=== PATIENT | female | born 1975 | race Caucasian/White ===

== ENCOUNTER → 2019-09-18 08:53 | Outpatient (BNVA) | payer BC, SELFPAY | PROVIDERS: Family Provider Family Medicine; PCP Family Medicine; Visit Provider Nurse Practitioner | DX: G89.4 Chronic pain syndrome (principal); M54.5 Low back pain; F17.210 Nicotine dependence, cigarettes, uncomplicated; Z79.891 Long term (current) use of opiate analgesic | CPT/HCPCS: 99214 ==

== ENCOUNTER → 2019-11-21 11:38 | Outpatient (BNVA) | payer BC, SELFPAY | PROVIDERS: Family Provider Family Medicine; PCP Family Medicine; Visit Provider Nurse Practitioner | DX: G89.4 Chronic pain syndrome (principal); M54.9 Dorsalgia, unspecified; F17.210 Nicotine dependence, cigarettes, uncomplicated; Z79.891 Long term (current) use of opiate analgesic; Z71.6 Tobacco abuse counseling | CPT/HCPCS: 99214 ==

== ENCOUNTER → 2020-01-19 09:49 | Outpatient (BNVA) | payer OTHER, SELFPAY | PROVIDERS: Family Provider Family Medicine; PCP Family Medicine; Visit Provider Family Medicine | DX: Z13.6 Encounter for screening for cardiovascular disorders (principal); E55.9 Vitamin D deficiency, unspecified | CPT/HCPCS: 80053; 80061; 82306; 85025 ==

== ENCOUNTER → 2020-01-20 09:14 | Outpatient (BNVA) | payer OTHER, SELFPAY | PROVIDERS: Family Provider Family Medicine; PCP Family Medicine; Visit Provider Family Medicine | DX: Z13.6 Encounter for screening for cardiovascular disorders (principal); E55.9 Vitamin D deficiency, unspecified; L72.3 Sebaceous cyst; R79.9 Abnormal finding of blood chemistry, unspecified | CPT/HCPCS: 82728; 83550 ==

== ENCOUNTER 2020-02-06 15:01 | Outpatient (CLI) | payer OTHER, SELFPAY ==
--- NOTE | 2020-02-06 15:07 | US_ITS ---
WS: [id number] US soft tissue head neck [id number] REASON FOR EXAM: LYMPHADENOPATHY FINDINGS: The ear is a nodular mass with the hilum consistent with an enlarged lymph node On the left side there is also evidence of a lymph node similar in size. Left side measured 0.96 x 0. 32 x 0.96 cm along the left side of the head and neck there is evidence of another enlarged lymph nod e larger than the 1's behind the ear. Measured 1.65 x 0.54 x 1.40 cm. Scattered along the left side o f the neck are multiple smaller lymph nodes. One measured 0.77 x 5.28 x 0.91 cm. US/US soft tissue head neck 68062 IMPRESSION: Lymphadenopathy behind the ears bilaterally and along the left side of the neck with large nodes identified.
== END 2020-02-06 15:02 | disposition home or self-care (01) ==
LOC: RAD 15:05
PROVIDERS: PCP Family Medicine; Visit Provider Family Medicine
DX: R59.1 Generalized enlarged lymph nodes (principal)
CPT/HCPCS: 76536

== ENCOUNTER → 2020-02-19 10:59 | Outpatient (BNVA) | payer OTHER, SELFPAY | PROVIDERS: PCP Family Medicine; Visit Provider Anesthesiology | DX: G89.4 Chronic pain syndrome (principal); M54.41 Lumbago with sciatica, right side; M54.42 Lumbago with sciatica, left side; M54.9 Dorsalgia, unspecified; R59.1 Generalized enlarged lymph nodes; F17.210 Nicotine dependence, cigarettes, uncomplicated; Z79.891 Long term (current) use of opiate analgesic | CPT/HCPCS: 99214 ==

== ENCOUNTER 2020-03-23 08:34 | Day surgery (SDC) | payer BC, SELFPAY ==
[2020-03-22 11:01] VITALS: BMI 32.0
[2020-03-23] VITALS (13 sets, daily range): BP systolic 110–139; BP diastolic 57–89; PULSE 76–97; RESP 11–26; TEMP 36.1–36.6; O2SAT 95–98
[2020-03-23 08:51] LABS: OR HCG Qualitative Urine Negative (Negative)
[2020-03-23] MEDS: sodium chloride 0.9% 1,000 ML 30 ML IV (09:18)
--- NOTE | 2020-03-23 09:23 | ANES.PREANE2 ---
Pre-Anesthetic Assessment Pre-Anesthetic Assessment: Height/Weight: Height 1.57 m Weight 79.379 kg Temp Pulse Resp BP Pulse Ox 97.8 F 87 18 110/84 96 03/23/20 08:55 03/23/20 08:55 03/23/20 08:55 03/23/20 08:55 03/23/20 08:55 Preop Diagnosis: Cervical lymphadenopathy Proposed Procedure: Operation Date: 03/23/20 09:45 Proposed Procedures p Excision Left sided neck mass 73130 R59.1(Left) - Guille Serrano MD Familial anesthetic complications: None Was Beta Lety taken within 24 hours: Yes Last intake: Intake Last Liquid Date 03/22/20 Last Liquid Time 22:30 Last Solid Date 03/22/20 Last Solid Time 22:30 Social: Social History: Tobacco Airway: Cervical ROM: WNL MP: 2 Dentition: Full Musc/skel: Comments: chronic pain Progressive multiple sclerosis - states she hasn't had any exacerbations with previous anesthestics Neuropsych: Comments: progressive mutiple sclerosis Anesthetic Plan: ASA status: 2 Anesthesia: General Risk of > 500 ml blood loss (7ml/kg in children): No Meds/Allergies Current Medications: Current Medications Generic Name Dose Route Start Last Admin Trade Name Freq PRN Reason Stop Dose Admin Sodium Chloride 1,000 mls @ 30 ml s/hr 03/23/20 08:00 03/23/20 09:18 Sodium Chloride 0.9% IV 03/24/20 07:59 30 mls/hr .Q24H LEONORA Administration PFSH Anesthesia PFSH: Medical History Chronic pain disorder Encounter for long-term (current) use of other medications Encounter for long-term opiate analgesic use Major depressive disorder Smoker Surgical History Hx of section Hx of cholecystectomy Hx of tonsillectomy Family History Mother Diabetes Myocardial infarct Social History Smoking and tobacco status: current every day smoker cigarettes Packs smoked per day: 1 Alcohol intake: never History of recent travel: No Data Anesthesia Other Labs: Laboratory Results - last 48 hr 03/23/20 08:44 Urine HCG, Qual Negative Cardiac Studies: No Data to Display
--- NOTE | 2020-03-23 09:35 | W.PM.OPSUD ---
Surgery/Procedure H&P Update DATE OF PROCEDURE: March 23, 2020 DATE H&P PERFORMED: 03/04/20 H&P UPDATE INFORMATION: I have reviewed H&P completed within last 30 days, I have examined patient prior to procedure and No changes to prior documentation PREOP DIAGNOSIS: Cervical lymphadenopathy PRIMARY INDICATION FOR PROCEDURE: The same PLANNED PROCEDURE: Operation Date: 03/23/20 09:45 Proposed Procedures p Excision Left sided neck mass 12567 R59.1(Left) - Guille Serrano MD
[2020-03-23] MEDS: lidocaine 2% INJ 20 mL INJECTION (10:43)
--- NOTE | 2020-03-23 10:46 | PM.OP ---
Operative Report Date of procedure: March 23, 2020 Pre-op Diagnosis: Cervical lymphadenopathy Post-op diagnosis: same Post-op Diagnosis: Deeply seated left-sided cervical lymphadenopathy measures about 2 x 1 cm Procedure Done: Excision of left sided cervical lymphadenopathy Specimens removed/disposition: Lymph node was cut into 3 pieces by me; 1-tissues sent for lymphoma saline fresh 2-tissues sent for cultures and sensitivity 3-tissues sent for permanent pathology Surgeon: Guille Serrano Rn Internal Medicine: printer technician Umesh Circulating nurse Evette Anesthesia: General (wan support specialist Smart) Estimated blood loss (mL): 10 Condition: stable Disposition: same day Brief History: This is a pleasant 44 years old female patient presented with concerning growth on the left side of the neck likely cervical lymphadenopathy.After thorough history physical examination and reviewing the chart and images with my personal interpretation I did director of group counseling program the patient for excision of cervical lymph node. Indications, risks, benefits and alternatives were all discussed with the patient and she did agree to proceed An informed consent per chart Procedure: After identifying the patient holding area, the correct site and side was marked before the procedure by myself, left side of the neck region, patient was then taken to the operative suite, was placed in supine position, patient had LMA placed by the anesthesia provider,Timeout was done verifying the patient's name/date of /planned procedure and destination after the procedure, all were in agreement. SCDs confirmed to be functioning, preoperative antibiotics administered per protocol, and beta maxim protocol was confirmed Prep and drape of the left side of the neck region was done under the usual sterile technique. Local anesthesia 2% lidocaine was infiltrated site of the incision overlying the left neck sided lymphadenopathy, skin incision was done all the way down to the subcutaneous tissues and platysma dissection was then carried on , the mass was dissected, was deeply seated under the left sternocleidomastoid muscle lymph node was about 2 x 1 cm. I did use small size clips were used to control the feeding small vessels to the lymph node and additional 3 oh [id number] Vicryl sutures to ligate a traversing vein. The specimen was passed to the circulating nurse after slicing the lymph node into 3 pieces in the form of: 1-tissues sent for fresh to rule out lymphoma 2-tissues for cultures and sensitivities 3-tissues for histopathology and permanent Hemostasis was achieved using Bovie cautery, followed by irrigation with normal saline, 3-0 Vicryl was used for platysma closure and deep subdermal,followed by 4-0 Monocryl followed by surgical glue and pressure dressing. Count was completed at the end of the procedure Patient was taken to the recovery room in stable condition I was present for the whole entire procedure
[2020-03-23] MEDS: fentaNYL 50 mcg/mL INJ 2mL IVP ×2 (11:06→11:17)
[2020-03-23] MEDS: ondansetron 2 mg/ML SDV 2 mL 4 MG IVP ×2 (11:07→11:19)
--- NOTE | 2020-03-23 11:23 | SUR.PHASEI ---
1054 PATIENT TO PACU FROM OR. TALKATIVE. NO DISTRESS. RR EVEN AND UNLABORED. DRESSING TO LEFT NECK, CDI.
[2020-03-23] MEDS: metoclopramide 5 mg/mL SDV 2 mL 10 MG IVP (11:25)
--- NOTE | 2020-03-23 11:36 | SUR.PHASEI ---
1130 PATIENT TO OPS AT THIS TIME. TOLERATING ICE CHIPS. NAUSEA AND PAIN IMPROVED. DRESSING TO LEFT NECK, CDI. ANESTHESIA AWARE OF LAST DOSE OF PAIN MEDICATION. THIS NURSE REMAINED WITH PATIENT UNTIL 1132.
[2020-03-23] MEDS: TRAMadol 50 mg Tablet PO (11:40)
[2020-04-13 09:22] LABS: Miscellaneous Test See Scanned Lab Rpt
== END 2020-03-23 12:12 | disposition home or self-care (01) ==
PROVIDERS: PCP Family Medicine; Visit Provider Surgery
PROC: (CPT 38510; principal; 2020-03-23 09:45)
DX: R59.1 Generalized enlarged lymph nodes (principal); G89.29 Other chronic pain; Z79.891 Long term (current) use of opiate analgesic; F32.9 Major depressive disorder, single episode, unspecified; F17.210 Nicotine dependence, cigarettes, uncomplicated; Z82.49 Family history of ischemic heart disease and other diseases of the circulatory system; Z83.3 Family history of diabetes mellitus
CPT/HCPCS: 38510; 12345; 81025; 84703; 87070; 87077; 87176; 87186; 87205; 88271; 88275; 88309; J0690; J2405; J2704; J2765; J3010; J7030

== ENCOUNTER → 2020-04-20 13:41 | Outpatient (BNVA) | payer BC, SELFPAY | PROVIDERS: PCP Family Medicine; Visit Provider Anesthesiology | DX: G89.4 Chronic pain syndrome (principal); M54.42 Lumbago with sciatica, left side; M54.41 Lumbago with sciatica, right side; M54.9 Dorsalgia, unspecified; F17.210 Nicotine dependence, cigarettes, uncomplicated; Z79.891 Long term (current) use of opiate analgesic; Z71.6 Tobacco abuse counseling | CPT/HCPCS: 99214 ==

== ENCOUNTER 2020-06-03 10:56 | Outpatient (CLI) | payer BC, SELFPAY ==
--- NOTE | 2020-06-03 11:09 | XR_ITS ---
WS: [id number] SHOULDER LEFT TECHNIQUE: 3 views of the left shoulder CLINICAL INFORMATION: left shoulder pain COMPARISON: FINDINGS: Normal acromioclavicular joint. Normal glenohumeral joint. Acromion is normal in appearance. Normal g lenoid. No evidence of acute fracture dislocation. XR/XR shoulder LT min 2V* [id number] IMPRESSION: Normal left shoulder.
== END 2020-06-03 10:57 | disposition home or self-care (01) ==
LOC: RADWPI 11:00
PROVIDERS: PCP Family Medicine; Visit Provider Surgery
DX: M25.512 Pain in left shoulder (principal)
CPT/HCPCS: 73030

== ENCOUNTER → 2020-06-16 09:39 | Outpatient (BNVA) | payer BC, SELFPAY | PROVIDERS: PCP Family Medicine; Visit Provider Anesthesiology | DX: G89.29 Other chronic pain (principal); M54.9 Dorsalgia, unspecified; F17.210 Nicotine dependence, cigarettes, uncomplicated; Z79.891 Long term (current) use of opiate analgesic; Z71.6 Tobacco abuse counseling | CPT/HCPCS: 99213; 99214 ==

== ENCOUNTER → 2020-06-28 13:46 | Outpatient (BNVA) | payer BC, SELFPAY | PROVIDERS: PCP Family Medicine; Referring Provider Surgery; Visit Provider Orthopaedic Surgery | DX: M25.612 Stiffness of left shoulder, not elsewhere classified (principal) | CPT/HCPCS: 73030 ==

== ENCOUNTER → 2020-08-04 14:17 | Outpatient (BNVA) | payer BC, SELFPAY | PROVIDERS: PCP Family Medicine; Visit Provider Nurse Practitioner Women's Health | DX: Z01.419 Encounter for gynecological examination (general) (routine) without abnormal findings (principal); Z11.3 Encounter for screening for infections with a predominantly sexual mode of transmission; N76.0 Acute vaginitis; B96.89 Other specified bacterial agents as the cause of diseases classified elsewhere | CPT/HCPCS: 87491; 87591; 87661; 88175 ==

== ENCOUNTER → 2020-08-11 14:07 | Outpatient (BNVA) | payer BC, SELFPAY | PROVIDERS: PCP Family Medicine; Visit Provider Anesthesiology | DX: G89.29 Other chronic pain (principal); M53.3 Sacrococcygeal disorders, not elsewhere classified; M54.9 Dorsalgia, unspecified; F17.210 Nicotine dependence, cigarettes, uncomplicated; Z79.891 Long term (current) use of opiate analgesic; Z79.899 Other long term (current) drug therapy; Z71.6 Tobacco abuse counseling | CPT/HCPCS: 99213; 99214 ==

== ENCOUNTER → 2020-08-20 14:49 | Outpatient (BNVA) | payer BC, SELFPAY | PROVIDERS: PCP Family Medicine; Visit Provider Family Medicine | DX: E55.9 Vitamin D deficiency, unspecified (principal); Z13.6 Encounter for screening for cardiovascular disorders | CPT/HCPCS: 80053; 80061; 82306; 85025 ==

== ENCOUNTER 2020-08-31 13:37 | Outpatient (RCR) | payer BC, SELFPAY | END 2020-09-02 23:59 | disposition home or self-care (01) | LOC: SPT 13:37 | PROVIDERS: PCP Family Medicine; Referring Provider Family Medicine; Visit Provider Family Medicine | DX: M25.612 Stiffness of left shoulder, not elsewhere classified (principal) | CPT/HCPCS: 97161 ==

== ENCOUNTER → 2020-10-13 12:30 | Outpatient (BNVA) | payer OTHER, SELFPAY | PROVIDERS: PCP Family Medicine; Visit Provider Anesthesiology | DX: G89.29 Other chronic pain (principal); M54.9 Dorsalgia, unspecified; F17.219 Nicotine dependence, cigarettes, with unspecified nicotine-induced disorders; Z79.899 Other long term (current) drug therapy; Z79.891 Long term (current) use of opiate analgesic | CPT/HCPCS: 99213 ==

== ENCOUNTER 2020-11-01 14:07 | Outpatient (CLI) | payer OTHER, SELFPAY ==
--- NOTE | 2020-11-01 15:00 | MM_ITS ---
WS: [id number] Bilateral screening digital mammogram, 11/18/2020 Clinical Data: Z12.39 - Encounter for other screening for malignant neoplasm of breast Comparison: 08/16/2012 Findings: The breast parenchymal pattern shows fat replacement. No spiculated masses or clustered calcification s are seen. There are no secondary signs of carcinoma. MM/[place] [id number] Impression: 1. Negative bilateral mammogram unchanged. 2. Recommend annual screening mammograms. BIRADS: 1-Negative FOLLOW UP: 1 Year Follow-up The CAD apparel stock checker was used.
== END 2020-11-01 14:08 | disposition home or self-care (01) ==
LOC: RADSHAW 14:09
PROVIDERS: PCP Family Medicine; Visit Provider Nurse Practitioner Women's Health
DX: Z12.31 Encounter for screening mammogram for malignant neoplasm of breast (principal)
CPT/HCPCS: 77067

== ENCOUNTER 2020-11-04 06:00 | Outpatient (RCR) | payer OTHER, SELFPAY | END 2020-12-01 23:59 | disposition home or self-care (01) | LOC: SPT 06:00 | PROVIDERS: PCP Family Medicine; Referring Provider Family Medicine; Visit Provider Family Medicine | DX: M25.612 Stiffness of left shoulder, not elsewhere classified (principal) | CPT/HCPCS: 97110; 97161 ==

== ENCOUNTER → 2020-11-16 13:28 | Outpatient (BNVA) | payer OTHER, SELFPAY | PROVIDERS: PCP Family Medicine; Visit Provider Nurse Practitioner Women's Health | DX: Z30.42 Encounter for surveillance of injectable contraceptive (principal); A59.9 Trichomoniasis, unspecified | CPT/HCPCS: 81025; 87661 ==

== ENCOUNTER 2020-12-02 06:00 | Outpatient (RCR) | payer OTHER, SELFPAY | END 2020-12-31 23:59 | disposition home or self-care (01) | LOC: SPT 06:00 | PROVIDERS: PCP Family Medicine; Referring Provider Family Medicine; Visit Provider Family Medicine | DX: M25.612 Stiffness of left shoulder, not elsewhere classified (principal) | CPT/HCPCS: 97110 ==

== ENCOUNTER → 2020-12-02 14:26 | Outpatient (BNVA) | payer OTHER, SELFPAY | PROVIDERS: PCP Family Medicine; Visit Provider Anesthesiology | DX: G89.29 Other chronic pain (principal); M54.9 Dorsalgia, unspecified; F17.219 Nicotine dependence, cigarettes, with unspecified nicotine-induced disorders; Z79.891 Long term (current) use of opiate analgesic | CPT/HCPCS: 99213 ==

== ENCOUNTER 2021-01-01 06:00 | Outpatient (RCR) | payer OTHER, SELFPAY | END 2021-01-31 23:59 | disposition home or self-care (01) | LOC: SPT 06:00 | PROVIDERS: PCP Family Medicine; Referring Provider Family Medicine; Visit Provider Family Medicine | DX: M25.612 Stiffness of left shoulder, not elsewhere classified (principal) | CPT/HCPCS: 97110; G0283 ==

== ENCOUNTER 2021-01-25 17:58 | Emergency (ER) | payer OTHER, SELFPAY ==
[2021-01-25] VITALS (10 sets, daily range): BP systolic 111–139; BP diastolic 69–92; PULSE 0–99; RESP 15–22; TEMP 36.6; O2SAT 96–100; BMI 34.0
[2021-01-25 19:34] LABS: Add Urine Microscopic? NO; Charge for UA Resulting for Rev
[2021-01-25 19:37] LABS: Bilirubin Urine Neg (Negative); Blood Urine Neg (Negative); Glucose Urine UA Norm (Normal); Ketones Urine Negative (Negative); Leukocyte Esterase Urine Negative (Negative); Nitrate Urine Negative (Negative); Protein Urine Neg (Negative); Specific Gravity, Urine 1.015 (1.005-1.030); Urine Appearance Clear (CLEAR); Urine Color Yellow (Yellow); Urobilinogen Urine Norm (Negative); pH Urine 5 (5-7)
[2021-01-25 19:51] LABS: Basophils # 0.1 10^3/uL (0.0-0.1); Basophils % 0.7 %; Eosinophils # 0.1 10^3/uL (0.0-0.8); Eosinophils % 1.4 %; Hematocrit 37.2 % (37.0-47.0); Hemoglobin 12.3 g/dL (11.5-15.3); Lymphocytes # 2.8 10^3/uL (0.8-4.8); Lymphocytes % 40.2 %; Mean Corpuscular HGB Conc 33.1 g/dL (30.0-36.0); Mean Platelet Volume 8.5 fL (7.4-10.4); Monocytes # 0.5 10^3/uL (0.2-0.9); Monocytes % 7.6 %; Neutrophils # 3.45 10^3/uL (1.8-7.7); Neutrophils % 49.7 %; Nucleated Red Blood Cells % 0 %; Platelet Count 436 10^3/cmm (130-400); Red Blood Count 3.51 10^6/uL (4.1-5.3)
--- NOTE | 2021-01-25 19:58 | W.ED.CHESTPA ---
HPI - Chest Pain General: Chief Complaint: Chest Pain Stated Complaint: heart palpatations, light headed,weak,shaky,READ Time Seen by Provider: 01/25/21 19:11 History of Present Illness: HPI narrative: Patient is a well-appearing 45-year-old female seen for palpitations and chest pain and lightheadedness. She states that she has felt palpitations for many years, roughly 20, but in the last week, they have gotten significantly worse. She describes a pounding in her chest which recently has been accompanied by sharp pains and lightheadedness. She never had this before. She admits to smoking and drinking alcohol occasionally. She has no history of ACS or coronary interventions. She denies cough, fever, abdominal pain, nausea associated with the symptoms. She has no other acute complaints. She states that when she gets the sharp pain, she feels as if she might pass out for several seconds. Review of Systems General: Reports: 10 or more systems reviewed and unremarkable except in HPI and below PFSH ED PFSH: Medical History Anxiety and depression Chronic back pain Chronic pain disorder Encounter for long-term (current) use of other medications Encounter for long-term opiate analgesic use Lymphadenopathy Major depressive disorder Smoker Surgical History History of lymph node excision (~2019) benign Hx of section Hx of cholecystectomy Hx of tonsillectomy Family History Mother Diabetes Father Heart disease Grandmother Heart disease Maternal Stroke Maternal Denies family history of Colon cancer Ovarian cancer Hypercholesteremia Breast cancer Hypertension Uterine cancer Thyroid disease Social History Smoking and tobacco status: current every day smoker cigarettes Packs smoked per day: 1 Alcohol intake: never History of recent travel: No Physical Exam Const: COMMON NORMALS: no acute distress, patient oriented x3 and alert HENMT: COMMON NORMALS: normocephalic and atraumatic HEAD & SCALP: normocephalic and atraumatic Eye: COMMON NORMALS: Equal, round and reactive pupils present, EOMs intact bilaterally and no scleral icterus PUPIL: Yes Equal, round and reactive pupils present Resp: COMMON NORMALS: normal respiratory effort and No retractions Cardio: COMMON NORMALS: regular rate and No murmurs present (Cardio) RATE: regular rate RHYTHM: abnormal rhythm with ectopic beats GI: COMMON NORMALS: Normal to inspection, nondistended, normoactive bowel sounds present, Soft to palpation and non-tender PALPATION: Yes Soft to palpation Neuro: COMMON NORMALS: patient oriented x3 SENSORIUM/ORIENTATION: Yes alert Skin: COMMON NORMALS: no rashes or lesions noted GENERAL SKIN EXAM: no rashes or lesions noted Course Vital Signs: Vital signs: Vital Signs Temperature 97.8 F 01/25/21 18:03 Pulse Rate 61 01/26/21 00:32 Respiratory Rate 16 01/26/21 00:32 Blood Pressure 99/69 01/26/21 00:32 Pulse Oximetry 99 01/26/21 00:32 MDM - Chest Pain MDM Narrative: Medical decision making narrative: Patient remained hemodynamically stable throughout ED course. Initially, she had frequent PVCs which were symptomatic. After receiving 25 mg immediate release metoprolol oral, PVCs remitted completely. Troponin x2 are negative and EKG shows no ST segment elevation or depression. BNP is very mildly elevated. She does express that she sometimes feels orthopnea when she lays flat at night. I spoke with cardiology who agrees it is safe her to be discharged with low-dose metoprolol and follow-up to cardiology. They advised a cardiac event monitor be placed. She will be discharged in stable and improved condition with follow-up to cardiology. Lab Data: Labs: Lab Results 01/25/21 01/25/21 01/25/21 Range/Units 19:23 19:44 19:44 WBC 7.0 (4.0-10.0) 10^3/ uL RBC 3.51 L (4.1-5.3) 10^6/u L Hgb 12.3 (11.5-15.3) g/dL Hct 37.2 (37.0-47.0) % MCV 106.0 H (81-99) fL MCH 35.0 H (28.0-34.0) pg MCHC 33.1 (30.0-36.0) g/dL RDW 14.0 (12.1-15.1) % Plt Count 436 H (130-400) 10^3/c mm MPV 8.5 (7.4-10.4) fL Neut % (Auto) 49.7 % Lymph % (Auto) 40.2 % [place] % (Auto) 7.6 % Eos % (Auto) 1.4 % Baso % (Auto) 0.7 % Neut # (Auto) 3.45 (1.8-7.7) 10^3/u L Lymph # (Auto) 2.8 (0.8-4.8) 10^3/u L [place] # (Auto) 0.5 (0.2-0.9) 10^3/u L Eos # (Auto) 0.1 (0.0-0.8) 10^3/u L Baso # (Auto) 0.1 (0.0-0.1) 10^3/u L Nucleated RBC % (a uto) 0 % Nucleated RBCs # 0.0 /100WBC Sodium 141 (136-145) mmol/L Potassium 4.2 (3.5-5.1) mmol/L Chloride 104 (98-107) mmol/L Carbon Dioxide 24 (22-29) mmol/L Anion Gap 17.2 (5-19) BUN 8 (6-20) mg/dL Creatinine 0.4 L (0.5-0.9) mg/dL GFR Calculation 173.4 H (90-130) mL/min Glucose 97 (65-115) mg/dL Calculated Osmolal ity 290 (285-295) mOsm/k g Calcium 8.9 (8.5-10.5) mg/dL Total Bilirubin 0.2 (0.15-1.2) mg/dL AST 17 (0-32) U/L ALT 25 (0-33) U/L Alkaline Phosphata se 105 (35-105) IU/L Troponin T Baselin e (0-10) ng/L Troponin T 120 Min [place] (0-10) ng/L Delta Troponin T (0-10) ABS# NT-Pro-B Natriuret Pep (0-125) pg/mL Total Protein 6.7 (6.6-8.7) g/dL Albumin 4.5 (3.5-5.2) g/dL Globulin 2.2 (1.3-4.6) g/dL Urine Color Yellow (Yellow) Urine Appearance Clear (CLEAR) Urine pH 5 (5-7) Ur Specific Gravit y 1.015 (1.005-1.030) Urine Protein Neg (Negative) Urine Glucose (UA) Norm (Normal) Urine Ketones Negative (Negative) Urine Blood Neg (Negative) Urine Nitrate Negative (Negative) Urine Bilirubin Neg (Negative) Urine Urobilinogen Norm (Negative) mg/dL Ur Leukocyte Nagelic ase Negative (Negative) 01/25/21 01/25/21 01/25/21 Range/Units 19:44 21:45 21:45 WBC (4.0-10.0) 10^3/ uL RBC (4.1-5.3) 10^6/u L Hgb (11.5-15.3) g/dL Hct (37.0-47.0) % MCV (81-99) fL MCH (28.0-34.0) pg MCHC (30.0-36.0) g/dL RDW (12.1-15.1) % Plt Count (130-400) 10^3/c mm MPV (7.4-10.4) fL Neut % (Auto) % Lymph % (Auto) % [place] % (Auto) % Eos % (Auto) % Baso % (Auto) % Neut # (Auto) (1.8-7.7) 10^3/u L Lymph # (Auto) (0.8-4.8) 10^3/u L [place] # (Auto) (0.2-0.9) 10^3/u L Eos # (Auto) (0.0-0.8) 10^3/u L Baso # (Auto) (0.0-0.1) 10^3/u L Nucleated RBC % (a uto) % Nucleated RBCs # /100WBC Sodium (136-145) mmol/L Potassium (3.5-5.1) mmol/L Chloride (98-107) mmol/L Carbon Dioxide (22-29) mmol/L Anion Gap (5-19) BUN (6-20) mg/dL Creatinine (0.5-0.9) mg/dL GFR Calculation (90-130) mL/min Glucose (65-115) mg/dL Calculated Osmolal ity (285-295) mOsm/k g Calcium (8.5-10.5) mg/dL Total Bilirubin (0.15-1.2) mg/dL AST (0-32) U/L ALT (0-33) U/L Alkaline Phosphata se (35-105) IU/L Troponin T Baselin e 6 (0-10) ng/L Troponin T 120 Min [place] 6.00 (0-10) ng/L Delta Troponin T 0 (0-10) ABS# NT-Pro-B Natriuret Pep 197 H (0-125) pg/mL Total Protein (6.6-8.7) g/dL Albumin (3.5-5.2) g/dL Globulin (1.3-4.6) g/dL Urine Color (Yellow) Urine Appearance (CLEAR) Urine pH (5-7) Ur Specific Gravit y (1.005-1.030) Urine Protein (Negative) Urine Glucose (UA) (Normal) Urine Ketones (Negative) Urine Blood (Negative) Urine Nitrate (Negative) Urine Bilirubin (Negative) Urine Urobilinogen (Negative) mg/dL Ur Leukocyte Angelic ase (Negative) EKG Data^: EKG 1: Interpretation: Time?1812?normal sinus rhythm with frequent PVCs, rate of 84, no ST elevation or depression, intervals within normal limits. Discharge Plan Discharge Patient Disposition: Home Clinical Impression: Symptomatic PVCs, Near syncope Condition: Stable Prescriptions: New metoprolol tartrate 25 mg tablet 12.5 mg PO BID Qty: 30 RF: 0 No Action medroxyprogesterone [Depo-Provera] 150 mg/mL suspension 150 mg IM .every 3 months Qty: 1 RF: 3 famotidine 20 mg tablet 20 mg PO PRN RF: 0 oxycodone-acetaminophen [Percocet] 10-325 mg tablet 1 tab PO QID PRN (Reason: pain) 30 Days Qty: 120 RF: 0 Aspir-81 81 mg Tablet,Delayed Release (Dr/Ec) 81 mg PO QAM RF: 0 Tylenol Arthritis 650 mg Tablet Extended Release 1,300 mg PO PRN RF: 0 modafinil 200 mg tablet 200 mg PO QAM RF: 0 Prilosec 20 mg Capsule,Delayed Release(Dr/Ec) 20 mg PO QAM RF: 0 Vitamin D3 125 mcg (5,000 unit) Tablet 10,000 unit PO DAILY RF: 0 Multivitamins 28 mg iron- 800 mcg Tablet 2 tab PO QAM RF: 0 gabapentin 600 mg tablet 600 mg PO QID RF: 0 Skelaxin 800 mg tablet 800 mg PO QID RF: 0 Discharge Orders: Discharge ED (Routine); Ordered 01/26/21 Ordered By: José Miguel German Referrals: Amy Potter DO [Primary Care Provider] - Discharge Diet: Usual diet and Low Salt Discharge Activity: Resume usual activity Patient Instructions: Near Syncope (ED) Activity Restrictions/Additional Instructions: Your EKG and blood tests were reassuring today. Do not suspect heart attack Your PVCs appeared to occur much less frequently after taking metoprolol. Please take the medication as prescribed to keep PVCs from occurring. Your cardiac event monitor data should be sent to Dr. Nettles and you can follow-up with him to make sure no further interventions are warranted. Coding Level of Care Code ED Telephoto Installer for Eugenia Fwd Exam Detailed
--- NOTE | 2021-01-25 20:01 | PC.PHAR ---
pt states she takes care of her own medications-pt states she hasnt taken her glatiramer injection and topamax since oct 2020 pt states she is trying to get her insurance to cover her injection and states she forgot about taking the topamax-
[2021-01-25 20:10] LABS: Troponin(5th) Baseline 6 ng/L (0-10)
[2021-01-25 20:16] LABS: Alanine Aminotransferase 25 U/L (0-33); Albumin Level 4.5 g/dL (3.5-5.2); Alkaline Phosphatase 105 IU/L (35-105); Anion Gap 17.2 (5-19); Aspartate Amino Transferase 17 U/L (0-32); Blood Urea Nitrogen 8 mg/dL (6-20); Calcium 8.9 mg/dL (8.5-10.5); Carbon Dioxide 24 mmol/L (22-29); Chloride 104 mmol/L (98-107); Globulin 2.2 g/dL (1.3-4.6); Glomerular Filtration Rate 173.4 mL/min (90-130); Glucose 97 mg/dL (65-115); Osmolality Calculated 290 mOsm/kg (285-295); Potassium 4.2 mmol/L (3.5-5.1); Sodium 141 mmol/L (136-145); Total Bilirubin 0.2 mg/dL (0.15-1.2); Total Protein 6.7 g/dL (6.6-8.7)
--- NOTE | 2021-01-25 21:14 | ECG_ITS ---
[facility] Test Date: 2021-01-25 Pat Name: Darlene Yu Department: Room: Gender: Female Bioinformatics Team Member: : 1975 Requested By: José Miguel German Order Number: [id number] Craig MD: Leticia Montgomery M.D. Measurements Intervals [place] Rate: 71 P: 2 TX: 149 QRS: 15 QRSD: 66 T: 9 QT: 378 QTc: 412 Interpretive Statements SINUS RHYTHM LOW QRS VOLTAGE IN PRECORDIAL LEADS [QRS DEFLECTION < 1.0 mV IN CHEST LEADS] ANTEROSEPTAL MYOCARDIAL INFARCTION , OF INDETERMINATE AGE [40+ ms Q WAVE IN V1-V4] No previous ECG available for comparison Electronically Signed On 01-25-2021 23:12:46 CDT by Leticia Montgomery M.D. [email or web address]
--- NOTE | 2021-01-25 21:23 | XRR_ITS ---
PROCEDURE INFORMATION: Exam: XR Chest Exam date and time: 01/25/2021 9:31 PM Age: 45 years old Clinical indication: Pain; Chest pressure; Additional info: Chest pain TECHNIQUE: Imaging protocol: XR of the chest. Views: 1 view. Total images: 1 COMPARISON: No relevant prior studies available. FINDINGS: Lungs: No visible active interstitial or alveolar airspace disease. Pleural spaces: Unremarkable. No pleural effusion. No pneumothorax. Heart/Mediastinum: Unremarkable. No cardiomegaly. Bones/joints: Unremarkable. XR/XR chest 1V portable [id number] IMPRESSION: Nonacute.
[2021-01-25] MEDS: metoprolol tartrate 25 mg Tablet PO (22:07)
[2021-01-25 22:21] LABS: Troponin 5 2HR Delta 0 ABS# (0-10)
[2021-01-25 23:19] LABS: NT Pro B Type Natriuretic Pept 197 pg/mL (0-125)
[2021-01-26 00:32] VITALS: BP 99/69; PULSE 61; RESP 16; O2SAT 99
--- NOTE | 2021-01-26 01:14 | ECG_ITS ---
[facility] Test Date: 2021-01-25 Pat Name: Darlene Yu Department: Room: Gender: Female Archivist Economic History: : 1975 Requested By: José Miguel German Order Number: [id number] Craig MD: Surjit Nettles M.D. Measurements Intervals [place] Rate: 78 P: 12 ND: 148 QRS: 8 QRSD: 65 T: 33 QT: 362 QTc: 415 Interpretive Statements SINUS RHYTHM WITH OCCASIONAL ECTOPIC PREMATURE COMPLEXES LOW QRS VOLTAGE IN PRECORDIAL LEADS [QRS DEFLECTION < 1.0 mV IN CHEST LEADS] ANTEROSEPTAL MYOCARDIAL INFARCTION [40+ ms Q WAVE IN V1-V4], PROBABLY OLD No previous ECG available for comparison Electronically Signed On 01-26-2021 17:42:44 CDT by Surjit Nettles M.D. [id number]
[2021-01-26 01:28] VITALS: BP 95/55; PULSE 68; O2SAT 96
--- NOTE | 2021-01-27 14:10 | DCPLANNER ---
public works manager had message to schedule an out patient event monitor. public works manager faxed signed order to heart care, will call for appointment information.
--- NOTE | 2021-02-11 11:09 | DCPLANNER ---
campground manager called heart care, spoke with Kristine, to confirm if a follow up appointment had been scheduled for patient. campground manager was told that clinic has made several attempts to reach patient to schedule appointment. Clinic has not been able to reach patient. campground manager called phone number [phone], unable to speak with patient at this time, a voicemail was left for patient to return manager case phone call.
== END 2021-01-26 01:57 | disposition home or self-care (01) ==
PROVIDERS: Emergency Provider Student in an Organized Health Care Education/Training Program; PCP Family Medicine
DX: I49.3 Ventricular premature depolarization (principal); R55 Syncope and collapse; Z79.891 Long term (current) use of opiate analgesic; Z79.82 Long term (current) use of aspirin; F17.210 Nicotine dependence, cigarettes, uncomplicated; Z82.49 Family history of ischemic heart disease and other diseases of the circulatory system
CPT/HCPCS: 36415; 71045; 80053; 81003; 83880; 84484; 85025; 93005; 93271; 99284

== ENCOUNTER 2021-02-01 06:00 | Outpatient (RCR) | payer OTHER, SELFPAY | END 2021-03-02 23:59 | disposition home or self-care (01) | LOC: SPT 06:00 | PROVIDERS: PCP Family Medicine; Referring Provider Family Medicine; Visit Provider Family Medicine | DX: M25.612 Stiffness of left shoulder, not elsewhere classified (principal) | CPT/HCPCS: 97110 ==

== ENCOUNTER → 2021-02-08 13:06 | Outpatient (BNVA) | payer OTHER, SELFPAY | PROVIDERS: PCP Family Medicine; Visit Provider Anesthesiology | DX: G89.29 Other chronic pain (principal); M54.9 Dorsalgia, unspecified; M25.612 Stiffness of left shoulder, not elsewhere classified; F17.219 Nicotine dependence, cigarettes, with unspecified nicotine-induced disorders; Z79.891 Long term (current) use of opiate analgesic | CPT/HCPCS: 99214 ==

== ENCOUNTER → 2021-04-08 13:24 | Outpatient (BNVA) | payer OTHER, SELFPAY | PROVIDERS: PCP Family Medicine; Visit Provider Anesthesiology | DX: G89.29 Other chronic pain (principal); M53.3 Sacrococcygeal disorders, not elsewhere classified; M25.512 Pain in left shoulder; F17.219 Nicotine dependence, cigarettes, with unspecified nicotine-induced disorders; Z79.891 Long term (current) use of opiate analgesic | CPT/HCPCS: 99214 ==

== ENCOUNTER → 2021-06-02 13:44 | Outpatient (BNVA) | payer OTHER, SELFPAY | PROVIDERS: PCP Family Medicine; Visit Provider Nurse Practitioner | DX: G89.29 Other chronic pain (principal); M54.5 Low back pain; G35 Multiple sclerosis; M79.606 Pain in leg, unspecified; F17.219 Nicotine dependence, cigarettes, with unspecified nicotine-induced disorders; Z79.891 Long term (current) use of opiate analgesic; Z71.6 Tobacco abuse counseling | CPT/HCPCS: 99214 ==

== ENCOUNTER → 2021-07-20 13:14 | Outpatient (BNVA) | payer OTHER, SELFPAY | PROVIDERS: PCP Family Medicine; Visit Provider Family Medicine | DX: Z13.6 Encounter for screening for cardiovascular disorders (principal); E55.9 Vitamin D deficiency, unspecified | CPT/HCPCS: 80053; 80061; 82306; 85025 ==

== ENCOUNTER → 2021-08-04 15:03 | Outpatient (BNVA) | payer OTHER, SELFPAY | PROVIDERS: PCP Family Medicine; Visit Provider Anesthesiology | DX: G89.29 Other chronic pain (principal); M54.50 Low back pain, unspecified; F17.219 Nicotine dependence, cigarettes, with unspecified nicotine-induced disorders; Z79.899 Other long term (current) drug therapy; Z79.891 Long term (current) use of opiate analgesic; Z71.6 Tobacco abuse counseling | CPT/HCPCS: 99214 ==

== ENCOUNTER 2021-08-17 06:00 | Outpatient (RCR) | payer OTHER, SELFPAY | END 2021-09-02 23:59 | disposition home or self-care (01) | LOC: SPT 06:00 | PROVIDERS: PCP Family Medicine; Referring Provider Family Medicine; Visit Provider Family Medicine | DX: M25.612 Stiffness of left shoulder, not elsewhere classified (principal) | CPT/HCPCS: 97161 ==

== ENCOUNTER 2021-09-03 06:00 | Outpatient (RCR) | payer OTHER, SELFPAY | END 2021-10-03 23:59 | disposition home or self-care (01) | LOC: SPT 06:00 | PROVIDERS: PCP Family Medicine; Referring Provider Family Medicine; Visit Provider Family Medicine | DX: M25.612 Stiffness of left shoulder, not elsewhere classified (principal) | CPT/HCPCS: 97110 ==

== ENCOUNTER 2021-10-04 06:00 | Outpatient (RCR) | payer OTHER, SELFPAY | END 2021-10-31 23:59 | disposition home or self-care (01) | LOC: SPT 06:00 | PROVIDERS: PCP Family Medicine; Referring Provider Family Medicine; Visit Provider Family Medicine | DX: M25.612 Stiffness of left shoulder, not elsewhere classified (principal) | CPT/HCPCS: 97110 ==

== ENCOUNTER 2021-11-01 06:00 | Outpatient (RCR) | payer OTHER, SELFPAY | END 2021-12-01 23:59 | disposition home or self-care (01) | LOC: SPT 06:00 | PROVIDERS: PCP Family Medicine; Referring Provider Family Medicine; Visit Provider Family Medicine | DX: M25.612 Stiffness of left shoulder, not elsewhere classified (principal) | CPT/HCPCS: 97110 ==

== ENCOUNTER 2021-11-24 12:25 | Outpatient (CLI) | payer OTHER, SELFPAY ==
--- NOTE | 2021-11-24 12:40 | XR_ITS ---
WS: [id number] Lumbar spine with flexion, extension, and neutral lateral, 11/24/2021 Clinical Data: VERTEBROGENIC LOW BACK PAIN Comparison: None. Findings: No compression fractures or subluxation is seen. No disc space narrowing is seen. No limitation of motion or subluxation is seen. There are clips in the upper abdomen from a cholecystectomy. XR/XR lumbar spine f/e only [id number] Impression: Negative lateral lumbar spine.
== END 2021-11-24 12:26 | disposition home or self-care (01) ==
PROVIDERS: PCP Family Medicine; Visit Provider Nurse Practitioner
DX: M54.51 Vertebrogenic low back pain (principal)
CPT/HCPCS: 72120

== ENCOUNTER → 2022-07-21 14:30 | Outpatient (BNVA) | payer SELFPAY | PROVIDERS: PCP Family Medicine; Visit Provider Family Medicine | DX: Z13.6 Encounter for screening for cardiovascular disorders (principal) | CPT/HCPCS: 80053; 80061; 85025 ==

== ENCOUNTER 2022-08-09 12:42 | Outpatient (CLI) | payer OTHER, SELFPAY ==
--- NOTE | 2022-08-09 13:00 | MR_ITS ---
WS: [id number] MRI LEFT SHOULDER NONCONTRAST TECHNIQUE: Sagittal T2, coronal T1, T2 and proton density imaging. Axial gradient PDE imaging. CLINICAL INFORMATION: limited ROM of left shoulder COMPARISON: None. FINDINGS: Mild degenerative arthritis AC joint. Slight subacromial spurring. Mild narrowing of the subacromial space. Normal supraspinatus and infraspinatus. Normal teres minor and subscapularis. Posterior sublux ation of the humerus with visualized small volume joint capsule. Recommend correlation for adhesive c apsulitis. Small amount of T2 signal abnormality along the rotator interval which can be seen with adhesive caps ulitis. Normal bone marrow signal in the humerus and glenoid. Normal biceps tendon in the bicipital g roove. Intra-articular biceps tendon appears intact. Biceps labral anchor appears in tact. MR/MR shoulder LT wo con* [id number] IMPRESSION: 1. Very small volume shoulder capsule suspicious for adhesive capsulitis. Soft tissue thickening along the axillary recess with a small amount of signal abno rmality along the rotator interval. 2. Mild degenerative arthritis AC joint. Minimal subacromial spurring. 3. Rotator cuff appears intact. 4. Normal biceps tendon in the bicipital groove.
== END 2022-08-09 12:43 | disposition home or self-care (01) ==
LOC: RAD 12:43
PROVIDERS: PCP Family Medicine; Visit Provider Family Medicine
DX: M75.02 Adhesive capsulitis of left shoulder (principal); M19.012 Primary osteoarthritis, left shoulder
CPT/HCPCS: 73221

== ENCOUNTER 2023-02-04 11:32 | Emergency (ER) | payer OTHER, MEDICAID, SELFPAY ==
[2023-02-04 12:02] VITALS: BP 155/88; PULSE 120; RESP 20; TEMP 37; O2SAT 95
--- NOTE | 2023-02-04 12:09 | XRR_ITS ---
PROCEDURE INFORMATION: Exam: XR Chest Exam date and time: 02/04/2023 12:16 PM Age: 47 years old Clinical indication: Fever; Additional info: Fever chills tachycardia TECHNIQUE: Imaging protocol: Radiologic exam of the chest. Views: 1 view. COMPARISON: CR XR chest 1V portable [id number] 01/25/2021 9:31 PM FINDINGS: Lungs: Lung volumes are decreased. Small indistinct discoid shaped density left lung base developed from previous exam more likely secondary to subsegmental atelectasis. Remaining lung harrington are essentially clear for degree of aeration. Pleural spaces: Unremarkable. No pleural effusion. No pneumothorax. Heart/Mediastinum: Cardiac silhouette appears mildly enlarged but accentuated by decreased lung volumes. Bones/joints: Unremarkable for age. XR/XR chest 1V portable [id number] IMPRESSION: Mild cardiomegaly with indistinct density left lung base. Favor subsegmental atelectasis. Continued follow-up advised.
--- NOTE | 2023-02-04 12:21 | ED_ITS ---
HPI - Nausea/Vomiting/Diarrhea General: Chief complaint: Nausea/Vomiting/Diarrhea Stated complaint: flu positive Time Seen by Provider: 02/04/23 12:00 History of Present Illness: Patient presents to the ER with nausea vomiting flulike symptoms over the last several days. Patient says she has MS and has not been able to keep her medicines down for the last several days. Patient has not been checked for the flu or COVID but she thinks she has the flu because she feels that way. MD elicited complaint: nausea and vomiting Onset (ago): day(s) Description of vomiting: watery Associated nausea: Yes Associated abdominal pain: No Exacerbating factors: eating Relieving factors: none Associated symtoms: Reports nausea Review of Systems General: Reports: 10 or more systems reviewed and unremarkable except in HPI and below GI: Reports: nausea PFSH ED PFSH: Medical History Anxiety and depression Chronic back pain Chronic pain disorder Encounter for long-term (current) use of other medications Encounter for long-term opiate analgesic use Lymphadenopathy Major depressive disorder No pertinent past medical history neghx: htn,dm,thyroid,dvt/pe PCP: Dr. Potter Smoker Smokes for nerve control Surgical History History of lymph node excision (~2019) benign Hx of section Hx of cholecystectomy Hx of tonsillectomy Family History Mother Diabetes Father Heart disease Grandmother Heart disease Maternal Stroke Maternal Denies family history of Colon cancer Ovarian cancer Hypercholesteremia Breast cancer Hypertension Uterine cancer Thyroid disease Social History Smoking and tobacco status: current every day smoker Substance/Drug Use: never Physical Exam Const: COMMON NORMALS: no acute distress, average body habitus, patient oriented x3, no limitations, healthy appearing and well nourished HENMT: COMMON NORMALS: normocephalic, atraumatic, hearing grossly normal bilaterally, external ears normal, Normal external nose present and moist oral mucous membranes HEAD & SCALP: normocephalic and atraumatic NOSE: Normal external nose present EXTERNAL EAR: Yes external ears normal Eye: COMMON NORMALS: Equal, round and reactive pupils present, EOMs intact bilaterally, conjunctivae normal and no scleral icterus CONJUNCTIVA: Yes conjunctivae normal PUPIL: Yes Equal, round and reactive pupils present Neck/C-Spine: COMMON NORMALS: full ROM, no lymphadenopathy, supple, no meningeal signs, no JVD and Thyroid normal THYROID: Thyroid normal Lymph: LYMPHATIC: no lymphadenopathy noted Chest: COMMONS NORMALS: normal inspection of the chest and normal palpation of entire chest wall Resp: COMMON NORMALS: normal respiratory effort, No retractions and No use of accessory muscles Cardio: COMMON NORMALS: no JVD, regular rhythm, S1 normal heart sound present, S2 normal heart sound present, No gallops present (Cardio), No clicks present (Cardio), No murmurs present (Cardio) and No rub (Cardio) RATE: tachycardic RHYTHM: regular rhythm HEART SOUNDS: S1 normal heart sound present and S2 normal heart sound present GI: COMMON NORMALS: Normal to inspection, nondistended, normoactive bowel sounds present, Soft to palpation, non-tender, No hepatosplenomegaly present and no masses PALPATION: Yes Soft to palpation and Yes No hepatosplenomegaly present : COMMON NORMALS: Yes no CVA tenderness BLADDER/KIDNEY EXAM: Yes no CVA tenderness Back/Pelvis: COMMON NORMALS: no CVA tenderness Neuro: COMMON NORMALS: patient oriented x3 MENINGEAL SIGNS: Yes no meningeal signs Course Vital Signs: Vital signs: Vital Signs Temperature 98.6 F 02/04/23 12:02 Pulse Rate 112 H 02/04/23 14:42 Respiratory Rate 18 02/04/23 15:19 Blood Pressure 136/78 02/04/23 14:42 Pulse Oximetry 96 02/04/23 15:19 Oxygen Delivery Me thod Room Air 02/04/23 14:42 MDM - Nausea/Vomiting/Diarrhea Medical Decision Making Patient presented to the ER with complaints of nausea vomiting diarrhea. Patient says she has been tested for the flu and is positive patient says she has full sclerosis. Lab work was obtained which showed white count of 17,000 chest x-ray showed indistinct density left lung base favor segmental and atelectasis urine showed positive for urinary tract infection, respiratory panel was negative. Patient was infused 1 L normal saline and 4 of Zofran and 4 morphine for pain. Patient will be discharged on Cipro and Zofran and told to follow-up with her primary care doc within 1 week or as needed. Differential Diagnosis Likely dehydration; Unlikely traveler's diarrhea, food poisoning, gastroe nteritis, clostridium difficile infection or drug-induced nausea and vomiting Medical Records I reviewed the patient's medical records. Lab Data I reviewed the patient's lab results. 02/04/23 12:33 02/04/23 12:33 Radiology Impressions Chest X-Ray 02/04/23 12:09 IMPRESSION: Mild cardiomegaly with indistinct density left lung base. Favor subsegmental atelectasis. Continued follow-up advised. Laboratory Results WBC 17.7 10^3/uL (4.0-10.0) H 02/04/23 12:33 RBC 3.50 10^6/uL (4.1-5.3) L 02/04/23 12:33 Hgb 11.3 g/dL (11.5-15.3) L 02/04/23 12:33 Hct 34.2 % (37.0-47.0) L 02/04/23 12:33 MCV 97.7 fl (81-99) 02/04/23 12:33 MCH 32.3 pg (28.0-34.0) 02/04/23 12:33 MCHC 33.0 g/dL (30.0-36.0) 02/04/23 12:33 RDW 15.4 % (12.1-15.1) H 02/04/23 12:33 Plt Count 369 10^3/cmm (130-400) 02/04/23 12:33 MPV 9.0 fL (7.4-10.4) 02/04/23 12:33 Neut % (Auto) 88.0 % 02/04/23 12:33 Lymph % (Auto) 4.2 % 02/04/23 12:33 [place] % (Auto) 4.8 % 02/04/23 12:33 Eos % (Auto) 0.8 % 02/04/23 12:33 Baso % (Auto) 0.4 % 02/04/23 12:33 Neut # (Auto) 15.57 10^3/uL (1.8-7.7) H 02/04/23 12:33 Lymph # (Auto) 0.7 10^3/uL (0.8-4.8) L 02/04/23 12:33 [place] # (Auto) 0.9 10^3/uL (0.2-0.9) 02/04/23 12:33 Eos # (Auto) 0.2 10^3/uL (0.0-0.8) 02/04/23 12:33 Baso # (Auto) 0.1 10^3/uL (0.0-0.1) 02/04/23 12:33 Nucleated RBC % (auto) 0 % 02/04/23 12:33 Nucleated RBCs # 0.0 /100WBC 02/04/23 12:33 Sodium 137 mmol/L (136-145) 02/04/23 12:33 Potassium 3.6 mmol/L (3.5-5.1) 02/04/23 12:33 Chloride 104 mmol/L (98-107) 02/04/23 12:33 Carbon Dioxide 18 mmol/L (22-29) L 02/04/23 12:33 Anion Gap 18.6 (5-19) 02/04/23 12:33 BUN 16 mg/dL (6-20) 02/04/23 12:33 Creatinine 0.7 mg/dL (0.5-0.9) 02/04/23 12:33 GFR Calculation 90.1 mL/min (90-130) 02/04/23 12:33 Glucose 119 mg/dL (65-115) H 02/04/23 12:33 Calculated Osmolality 286 mOsm/kg (285-295) 02/04/23 12:33 Calcium 8.6 mg/dL (8.5-10.5) 02/04/23 12:33 Magnesium 1.7 mg/dL (1.7-2.3) 02/04/23 12:33 Total Bilirubin 0.3 mg/dL (0.15-1.2) 02/04/23 12:33 AST 33 U/L (0-32) H 02/04/23 12:33 ALT 32 U/L (0-33) 02/04/23 12:33 Alkaline Phosphatase 133 U/L (35-105) H 02/04/23 12:33 Total Protein 7.3 g/dL (6.6-8.7) 02/04/23 12:33 Albumin 3.3 g/dL (3.5-5.2) L 02/04/23 12:33 Globulin 4.0 g/dL (1.3-4.6) 02/04/23 12:33 Urine Color Dark yellow (Yellow) 02/04/23 14:55 Urine Appearance Cloudy (CLEAR) A 02/04/23 14:55 Urine pH 5 (5-7) 02/04/23 14:55 Ur Specific [place] 1.015 (1.005-1.030) 02/04/23 14:55 Urine Protein 1+ (Negative) H 02/04/23 14:55 Urine Glucose (UA) Norm (Normal) 02/04/23 14:55 Urine Ketones Negative (Negative) 02/04/23 14:55 Urine Blood 2+ (Negative) H 02/04/23 14:55 Urine Nitrate Positive (Negative) H 02/04/23 14:55 Urine Bilirubin Neg (Negative) 02/04/23 14:55 Urine Urobilinogen Norm mg/dL (Negative) 02/04/23 14:55 Ur Leukocyte Esterase Trace (Negative) H 02/04/23 14:55 Urine RBC 0-4 /hpf (0-2) H 02/04/23 14:55 Urine WBC 15-25 /hpf (0-5) H 02/04/23 14:55 Ur Squamous Epith Cells 0-4 /hpf (0-5) H 02/04/23 14:55 Amorphous Sediment Not Reportable 02/04/23 14:55 Urine Bacteria 2+ /hpf (NONE) H 02/04/23 14:55 Nasal Influ A H1 2008 PCR Not detected (NOT DETECT) 02/04/23 12:29 Adenovirus (PCR) Not detected (NOT DETECT) 02/04/23 12:29 C. pneumoniae DNA (PCR) Not detected (NOT DETECT) 02/04/23 12:29 Coronavirus 229E (PCR) Not detected (NOT DETECT) 02/04/23 12:29 Human Metapneumovir PCR Not detected (NOT DETECT) 02/04/23 12:29 Influenza A (H1) PCR Not detected (NOT DETECT) 02/04/23 12:29 Influenza A (H3) PCR Not detected (NOT DETECT) 02/04/23 12:29 Influenza Type A (PCR) Not detected (NOT DETECT) 02/04/23 12:29 Influenza Type B (PCR) Not detected (NOT DETECT) 02/04/23 12:29 M. pneumoniae (PCR) Not detected (NOT DETECT) 02/04/23 12:29 Parainfluenza 1 (PCR) Not detected (NOT DETECT) 02/04/23 12:29 Parainfluenza 2 (PCR) Not detected (NOT DETECT) 02/04/23 12:29 Parainfluenza 3 (PCR) Not detected (NOT DETECT) 02/04/23 12:29 Parainfluenza 4 (PCR) Not detected (NOT DETECT) 02/04/23 12:29 RSV Type A (PCR) Not detected (NOT DETECT) 02/04/23 12:29 RSV Type B (PCR) Not detected (NOT DETECT) 02/04/23 12:29 Entero/Rhino (PCR) Not detected (NOT DETECT) 02/04/23 12:29 SARS-CoV-2 (PCR) Not detected (NOT DETECT) 02/04/23 12:29 Discharge Plan Discharge Patient Disposition: Home Clinical Impression: Nausea & vomiting Qualifiers: Vomiting type: unspecified Qualified Code(s): R11.2 - Nausea with vomiting, unspecified Urinary tract infection Qualifiers: Urinary tract infection type: acute cystitis Hematuria presence: with hematuria Qualified Code(s): N30.01 - Acute cystitis with hematuria Condition: Stable Prescriptions: New ciprofloxacin HCl 500 mg tablet 500 mg PO Q12H Qty: 20 0RF ondansetron HCl 4 mg tablet 4 mg PO Q6H PRN (Reason: nausea and vomiting) Qty: 14 0RF No Action glatiramer [Copaxone] 40 mg/mL syringe 20 mg SUBCUT .3X WEEK oxycodone-acetaminophen [Percocet] 10-325 mg tablet 1 tab PO QID PRN (Reason: pain) 30 Days Qty: 120 0RF Rx Instructions: fill on or after 10/07/21 oxycodone-acetaminophen [Percocet] 10-325 mg tablet 1 tab PO QID PRN (Reason: pain) 30 Days Qty: 120 0RF Rx Instructions: fill on or after 11/05/21 gabapentin 800 mg tablet 800 mg PO QID 30 Days Qty: 120 1RF Skelaxin 800 mg tablet 800 mg PO QID PRN (Reason: muscle pain) 30 Days Qty: 120 1RF topiramate 100 mg tablet See Rx Instructions .ROUTE .COMPLEX Qty: 90 1RF Dose Instruction: TAKE ONE TABLET BY MOUTH AT BEDTIME Rx Instructions: TAKE ONE TABLET BY MOUTH AT BEDTIME omeprazole 40 mg capsule,delayed release(DR/EC) 40 mg PO QAM Qty: 90 1RF medroxyprogesterone 150 mg/mL suspension See Rx Instructions .ROUTE .COMPLEX Qty: 1 0RF Dose Instruction: INJECT 150MG IN THE MUSCLE EVERY 3 MONTHS Rx Instructions: INJECT 150MG IN THE MUSCLE EVERY 3 MONTHS oxycodone-acetaminophen [Percocet] 7.5-325 mg tablet 1 tab PO Q4H PRN (Reason: pain) 11 Days Qty: 66 0RF Tylenol Arthritis 650 mg Tablet Extended Release 1,300 mg PO PRN modafinil 200 mg tablet 200 mg PO QAM Vitamin D3 125 mcg (5,000 unit) Tablet 10,000 unit PO DAILY Multivitamins 28 mg iron- 800 mcg Tablet 2 tab PO QAM metoprolol tartrate 25 mg tablet 12.5 mg PO BID Qty: 30 0RF Discharge Orders: Discharge ED (Routine); Ordered 02/04/23 Ordered By: Alejandro Martinez Referrals: Amy Potter DO [Primary Care Provider] - 1 week Patient Instructions: Acute Nausea and Vomiting (ED), Urinary Tract Infection - Women Activity Restrictions/Additional Instructions: Please take all medicines as prescribed. Please push fluids. Please follow-up with your family practice doc within the next 7 to 10 days as needed or return to the ER if symptoms worsen. Coding Level of Care Code ED [employer] Consultant for Eugenia Andersen
[2023-02-04 12:56] VITALS: BP 135/86; PULSE 107; RESP 16; O2SAT 95
[2023-02-04 13:00] LABS: Alanine Aminotransferase 32 U/L (0-33); Albumin Level 3.3 g/dL (3.5-5.2); Alkaline Phosphatase 133 U/L (35-105); Anion Gap 18.6 (5-19); Aspartate Amino Transferase 33 U/L (0-32); Blood Urea Nitrogen 16 mg/dL (6-20); Calcium 8.6 mg/dL (8.5-10.5); Carbon Dioxide 18 mmol/L (22-29); Chloride 104 mmol/L (98-107); Glomerular Filtration Rate 90.1 mL/min (90-130); Glucose 119 mg/dL (65-115); Magnesium 1.7 mg/dL (1.7-2.3); Osmolality Calculated 286 mOsm/kg (285-295); Potassium 3.6 mmol/L (3.5-5.1); Sodium 137 mmol/L (136-145); Total Bilirubin 0.3 mg/dL (0.15-1.2); Total Protein 7.3 g/dL (6.6-8.7)
[2023-02-04 13:04] LABS: Basophils # 0.1 10^3/uL (0.0-0.1); Basophils % 0.4 %; Eosinophils # 0.2 10^3/uL (0.0-0.8); Eosinophils % 0.8 %; Hematocrit 34.2 % (37.0-47.0); Hemoglobin 11.3 g/dL (11.5-15.3); Lymphocytes # 0.7 10^3/uL (0.8-4.8); Lymphocytes % 4.2 %; Mean Corpuscular Hemoglobin 32.3 pg (28.0-34.0); Mean Corpuscular Volume 97.7 fl (81-99); Monocytes # 0.9 10^3/uL (0.2-0.9); Monocytes % 4.8 %; Neutrophils # 15.57 10^3/uL (1.8-7.7); Nucleated Red Blood Cells % 0 %; Platelet Count 369 10^3/cmm (130-400); Red Cell Distribution Width 15.4 % (12.1-15.1); White Blood Count 17.7 10^3/uL (4.0-10.0)
[2023-02-04 13:18] LABS: Slide Review Slide Review Perform
[2023-02-04] MEDS: sodium chloride 0.9% 1,000 ML 999 ML IV ×2 (13:55→16:07)
[2023-02-04] MEDS: ondansetron 2 mg/ML SDV 2 mL 4 MG IVP (13:55)
[2023-02-04 14:28] LABS: Adenovirus Not Detected (NOT DETECT); Chlamydia Pneumoniae Not Detected (NOT DETECT); Coronavirus 229E,HKU1,NL63,OC4 Not Detected (NOT DETECT); Human Metapneumovirus Not Detected (NOT DETECT); Human Rhinovirus/Enterovirus Not Detected (NOT DETECT); Influenza A Not Detected (NOT DETECT); Influenza A H1 Not Detected (NOT DETECT); Influenza A H1-2009 Not Detected (NOT DETECT); Influenza A H3 Not Detected (NOT DETECT); Influenza B Not Detected (NOT DETECT); Mycoplasma Pneumoniae Not Detected (NOT DETECT); Parainfluenza Virus Type 1 Not Detected (NOT DETECT); Parainfluenza Virus Type 2 Not Detected (NOT DETECT); Parainfluenza Virus Type 3 Not Detected (NOT DETECT); Parainfluenza Virus Type 4 Not Detected (NOT DETECT); Respiratory Syncytial Virus A Not Detected (NOT DETECT); Respiratory Syncytial Virus B Not Detected (NOT DETECT); SARS-COV-2 Not Detected (NOT DETECT)
[2023-02-04 14:42] VITALS: BP 136/78; PULSE 112; RESP 16; O2SAT 96
[2023-02-04 15:19] VITALS: RESP 18; O2SAT 96
[2023-02-04] MEDS: morphine 4 mg/mL SDV 1 mL IVP (15:19)
[2023-02-04 15:24] LABS: Add Urine Microscopic? YES; Bilirubin Urine Neg (Negative); Blood Urine 2+ (Negative); Glucose Urine UA Norm (Normal); Ketones Urine Negative (Negative); Leukocyte Esterase Urine Trace (Negative); Nitrate Urine Positive (Negative); Protein Urine 1+ (Negative); RBC Urine 0-4 /hpf (0-2); Specific Gravity, Urine 1.015 (1.005-1.030); Urine Appearance Cloudy (CLEAR); Urine Color Dark Yellow (Yellow); Urobilinogen Urine Norm (Negative); pH Urine 5 (5-7)
[2023-02-04 15:25] LABS: Add Urine Culture? Yes; Bacteria Urine 2+ /hpf; Squamous Epithelial Cell Urine 0-4 /hpf (0-5); WBC Urine 15-25 /hpf (0-5)
[2023-02-04] MEDS: ketorolac 30 mg/mL INJ IVP (16:07)
[2023-02-04 16:16] VITALS: BP 150/83; PULSE 103; RESP 16; O2SAT 94
== END 2023-02-04 17:37 | disposition home or self-care (01) ==
PROVIDERS: Emergency Provider Emergency Medicine; PCP Family Medicine
DX: R11.2 Nausea with vomiting, unspecified (principal); N39.0 Urinary tract infection, site not specified; R19.7 Diarrhea, unspecified
CPT/HCPCS: 36415; 71045; 80053; 81001; 83735; 85025; 87077; 87086; 87186; 87486; 87581; 87633; 96361; 96374; 96375; 99284; J1885; J2270; J2405; J7030